=== PATIENT | male | born 1975 | race Caucasian/White ===

== ENCOUNTER 2018-10-17 21:27 | Emergency (ER) | payer MEDICARE ==
--- NOTE | 2018-10-17 22:30 | EDM.PDOC ---
<Lucrecia Lehman N - Last Filed: 10/17/18 22:25> ED HPI GENERAL MEDICAL PROBLEM - General Chief Complaint: Respiratory Problem Stated Complaint: ILLNESS Time Seen by Provider: 10/17/18 22:59 Source of Information: Reports: Patient History Limitations: Reports: No Limitations - History of Present Illness INITIAL COMMENTS - FREE TEXT/NARRATIVE: Charbel is a 42-year-old male who presents to the ER with complaints of nasal congestion for the past 2-3 days. Reports a productive cough, chills, decreased appetite, and malaise as well. No hemoptysis or dyspnea. Duration: Day(s): (3) Associated Symptoms: Reports: Fever/Chills, Loss of Appetite, Malaise - Related Data Allergies Allergy/AdvReac Type Severity Reaction Status Date / Time Penicillins Allergy Itching Verified 10/17/18 22:05 Home Meds: Home Meds risperiDONE [Risperdal] 3 mg PO DAILY 10/17/18 [History] Past Medical History - Past Surgical History HEENT Surgical History: Reports: Tonsillectomy Social & Family History - Tobacco Use Smoking Status *Q: Heavy Tobacco Smoker Years of Tobacco use: 20 Packs/Tins Daily: 1 - Caffeine Use Caffeine Use: Reports: Coffee, Energy Drinks, Soda - Recreational Drug Use Recreational Drug Use: Yes Drug Use in Last 12 Months: No ED ROS GENERAL - Review of Systems Review Of Systems: See Below Constitutional: Reports: Fever, Chills, Malaise, Decreased Appetite. Denies: Weakness, Fatigue HEENT: Reports: Rhinitis. Denies: Ear Pain, Throat Pain Respiratory: Reports: Cough, Sputum. Denies: Shortness of Breath, Pleuritic Chest Pain Cardiovascular: Reports: No Symptoms. Denies: Chest Pain Endocrine: Reports: No Symptoms GI/Abdominal: Reports: Decreased Appetite. Denies: Abdominal Pain, Constipation , Diarrhea, Nausea, Vomiting : Reports: No Symptoms Musculoskeletal: Reports: No Symptoms Skin: Reports: No Symptoms Neurological: Reports: No Symptoms Psychiatric: Reports: No Symptoms Hematologic/Lymphatic: Reports: No Symptoms ED EXAM, GENERAL - Physical Exam Exam: See Below Exam Limited By: No Limitations General Appearance: Alert, WD/WN, No Apparent Distress Eye Exam: Bilateral Eye: Normal Inspection Ears: Normal External Exam, Normal Canal, Hearing Grossly Normal, Normal TMs Nose: Normal Inspection Throat/Mouth: Normal Inspection, Normal Lips, Normal Teeth, Normal Gums, Normal Oropharynx, Normal Voice, No Airway Compromise Head: Atraumatic, Normocephalic Neck: Normal Inspection, Supple, Non-Tender Respiratory/Chest: No Respiratory Distress, Lungs Clear, Normal Breath Sounds, Chest Non-Tender Cardiovascular: Regular Rate, Rhythm, No Edema, No Gallop, No Murmur, No Rub GI/Abdominal: Normal Bowel Sounds, Soft, Non-Tender, No Organomegaly, No Distention, No Mass (Male) Exam: Deferred Rectal (Males) Exam: Deferred Neurological: Alert, Oriented, Normal Cognition, Normal Gait, No Motor/Sensory Deficits Psychiatric: Flat Affect Skin Exam: Warm, Dry, Intact, Normal Color, No Rash Lymphatic: No Adenopathy Course - Vital Signs Last Recorded V/S: Last Vital Signs Temp 98.4 F 10/17/18 22:06 Pulse 88 10/17/18 22:06 Resp 16 10/17/18 22:06 BP 137/66 10/17/18 22:06 Pulse Ox 98 10/17/18 22:06 Departure - Departure Disposition: Home, Self-Care 01 Clinical Impression: Bronchitis - Discharge Information Referrals: PCP,None [Primary Care Provider] - Forms: ED Department Discharge Additional Instructions: Take full course of antibiotics, use Robitussin-AC as needed help suppress cough , Please followup with your primary care provider in 3-5 days if not better, please call return to the emergency department with worsening of symptoms. <OfficerDon - Last Filed: 10/17/18 23:01> ED EXAM, GENERAL - Physical Exam Free Text/Narrative:: Breath sounds are coarse, with upper airway rhonchi radiating to the lower lung dove, cardiovascular is regular rate and rhythm S1-S2 Departure - Departure Time of Disposition: 23:01 Condition: Fair - Assessment/Plan Plan: Assessment Acuity = acute Site and laterality = bronchitis Etiology = possible bacterial cause Manifestations = cough] Location of injury = Home Lab values = none Plan Elected treat empirically is azithromycin 5 day course, Robitussin before meals 5 mL by mouth every 4 6 hours when necessary 120 mL bottle follow-up primary care 3-5 days if not better This note was dictated using [employer] voice recognition software please call with any questions on syntax or grammar.
== END 2018-10-17 23:08 | disposition home or self-care (01) ==
LOC: JP.ED 21:27
DX: J40 Bronchitis, not specified as acute or chronic (principal); F17.210 Nicotine dependence, cigarettes, uncomplicated; Z88.0 Allergy status to penicillin; Z79.899 Other long term (current) drug therapy
CPT/HCPCS: 99283